=== PATIENT | male | born 1970 | race Caucasian/White ===

== ENCOUNTER → 2023-07-15 | Outpatient (CLI) | payer OTHER ==
--- NOTE | 2023-08-07 08:56 | EM ---
Event monitor shows sinus mechanism and sinus tachycardia with normal heart rates Occasional premature beats 1 short run of nonsustained atrial tachycardia for 7 beats No sustained arrhythmias MTDD
== END | disposition home or self-care (01) ==
LOC: RADECHMAIN 07:50
PROVIDERS: ATTEND Family Medicine
DX: R00.2 Palpitations (principal)
CPT/HCPCS: 93270